=== PATIENT | female | born 1985 | race African-American/Black ===

== ENCOUNTER 2017-10-07 14:23 | Emergency (ER) | payer BC ==
[~2017-10-07] VITALS: Ht 175.3 cm; Wt 93.4 kg
[~2017-10-07 14:23] MED LIST: FLEXERIL PO; IBUPROFEN 600600 M1 PO; PERCOCET 5-3251 EACH PO; VALIUM2 MG PO
[2017-10-07 14:48] LABS: URINE BILIRUBIN NEGATIVE (Negative); URINE BLOOD NEGATIVE (Negative); URINE CLARITY CLEAR; URINE COLOR YELLOW; URINE GLUCOSE-RANDOM* NEGATIVE (Negative); URINE KETONES NEGATIVE (Negative); URINE LEUKOCYTES NEGATIVE (Negative); URINE NITRITE NEGATIVE (Negative); URINE PROTEIN (DIPSTICK) NEGATIVE (Negative); URINE SPECIFIC GRAVITY >= 1.030 (1.005-1.035); URINE UROBILINOGEN 0.2 E.U./dl (0.2-1.0)
[2017-10-07 15:03] LABS: HEMOGLOBIN 15.1 gm/dL (12.0-15.0); MCH 30.2 pg (26.0-34.0); MCHC 33.6 g/dL (28.0-37.0); MCV 89.8 fL (80.0-100.0); PLATELET COUNT 199 thou/uL (150-400); RBC 5.01 mil/uL (4.20-5.00); RDW 13.3 % (10.5-14.5); WBC 6.3 thou/uL (4.0-11.0)
[2017-10-07 15:14] LABS: CREATININE 0.9 mg/dL (0.6-1.0); POTASSIUM 3.7 mmol/L (3.5-5.1)
[2017-10-07 15:20] LABS: ALBUMIN 3.8 g/dL (3.4-5.0); TOTAL BILIRUBIN 0.3 mg/dL (<0.1-1.0); TOTAL PROTEIN 7.3 g/dL (6.4-8.2)
[2017-10-07 15:58] LABS: ABSOLUTE NEUTROPHILS 3.7 thou/uL (1.4-8.2)
[2017-10-07 15:59] LABS: ANISOCYTOSIS 1+; HYPOCHROMASIA SLIGHT; MICROCYTES SLIGHT
[2017-10-07] MEDS ORDERED: PROBIOTIC1 EAC1 PO (16:37)
[2017-10-07] MEDS ORDERED: BENTYL 20 MG TA20 M1 PO (16:37)
== END 2017-10-07 16:50 | disposition home or self-care (01) ==
LOC: ER 14:23
PROVIDERS: Nurse Practitioner Family
DX: K52.9 Noninfective gastroenteritis and colitis, unspecified (principal); B34.9 Viral infection, unspecified